=== PATIENT | female | born 2005 | race Hispanic/Latino ===

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

== ENCOUNTER 2024-05-24 08:34 | Emergency (ER) | payer SELFPAY ==
[~2024-05-24] VITALS: Ht 149.9 cm; Wt 54.4 kg
[~2024-05-24 08:34] MED LIST: CEFDINIR300 MG PO
[2024-05-24 08:42] VITALS: PULSE 87; RESP 16; TEMP 99; O2SAT 100
[2024-05-24] MEDS ORDERED: OFLOXACIN5 ML OP (08:56)
== END 2024-05-24 08:59 | disposition home or self-care (01) ==
LOC: ER 08:50
DX: R50.9 Fever, unspecified (principal); H10.9 Unspecified conjunctivitis
CPT/HCPCS: 99282

== ENCOUNTER 2024-12-06 21:05 | Emergency (ER) | payer SELFPAY ==
[~2024-12-06] VITALS: Ht 149.9 cm; Wt 54.4 kg
[~2024-12-06 21:05] MED LIST changes: +OFLOXACIN5 ML OP
[2024-12-06 21:07] VITALS: PULSE 103; RESP 18; TEMP 98.2
[2024-12-06 21:48] LABS: ALBUMIN 4.5 g/dL (3.5-5.0); ANION GAP 17.3 mmol/L (8-16); BILIRUBIN,TOTAL 0.5 mg/dL (0.2-1.2); CALCIUM 10.6 mg/dL (8.4-10.2); CREATININE, SERUM 0.82 mg/dL (0.57-1.11); POTASSIUM 4.3 mmol/L (3.5-5.1); TOTAL PROTEIN 8.9 g/dL (6.5-8.1)
[2024-12-06 21:53] LABS: BASOPHILS # (AUTO) 0.1 (0.0-0.1); BASOPHILS % 0.6 % (0.0-1.0); EOSINOPHILS # (AUTO) 0.1 (0.0-0.4); EOSINOPHILS % 0.9 % (0.0-6.0); LYMPHOCYTES # (AUTO) 3.8 (1.0-3.2); MEAN CORPUSCULAR HEMOGLOBIN 27.6 pg (28-32); MEAN CORPUSCULAR HGB CONC 34.1 g/dL (31-35); MEAN CORPUSCULAR VOLUME 80.9 fL (81-99); MONOCYTES % 9.7 % (4.4-11.3); NEUTROPHILS # (AUTO) 4.8 (2.1-6.9); NEUTROPHILS % 49.5 % (38.7-80.0); PLATELET COUNT 492 x10e3/uL (140-360); RED BLOOD COUNT 5.44 x10e6/uL (3.6-5.1); RED CELL DISTRIBUTION WIDTH 14.3 % (11.7-14.4); WHITE BLOOD COUNT 9.78 x10e3/uL (4.8-10.8)
[2024-12-06] MEDS: METHYLPREDNISOLONE SOD SUCC 125 MG/2ML VIAL IV STA (22:03)
[2024-12-06] MEDS: DIPHENHYDRAMINE HCL INJ 50 MG/ML VIAL IV STA (22:03)
[2024-12-06] MEDS: KETOROLAC TROMETHAMINE 30 MG/ML VIAL IV STA (22:04)
[2024-12-06] MEDS: SODIUM CHLORIDE 0.9% 1000ML 1,000 ML IV STA (22:04)
[2024-12-06] MEDS: METOCLOPRAMIDE HCL 10 MG/2ML VIAL IV STA (22:04)
[2024-12-06 22:41] VITALS: BP 104/57; PULSE 103; RESP 17; TEMP 99.3; O2SAT 100
== END 2024-12-06 23:20 | disposition home or self-care (01) ==
LOC: ER 21:10
DX: R51.9 Headache, unspecified (principal)
CPT/HCPCS: 36415; 70450; 80053; 81025; 85025; 99284; J1200; J1885; J2765; J2919; J7030